=== PATIENT | male | born 1970 | race Caucasian/White ===

== ENCOUNTER 2020-05-12 08:30 | Day surgery (SDC) | payer BC ==
[~2020-05-12] VITALS: Ht 185.4 cm; Wt 106.9 kg
[~2020-05-12 08:30] MED LIST: ALPR.5 PO; BUPR150ER PO; CITA20 PO; FENO145 PO; LISHYD1012 PO; OXYACE5T PO; Pravachol80 MG PO; ZOLP10 PO
--- NOTE | 2020-05-12 08:58 | NUR ---
PT AMBULATED INDPENDENTLY WITH STEADY GAIT FROM [facility] TO [facility]. PT PLACED IN GOWN, IV PLACED AND FLUIDS STARTED. PT VSS. DENIES ADDITIONAL NEEDS AT THIS TIME. BLOOD CONSENT COMPLETED.
--- NOTE | 2020-05-12 09:37 | NUR ---
05/12/20 0937 KAVYA HYLTON History, Chart, Medications and Allergies reviewed before start of procedure. 3-LEAD EKG REVIEWED WITH PHYSICIAN PRIOR TO START OF PROCEDURE. O2 VIA N/C INTACT THROUGHOUT SEDATION/PROCEDURE. MONITOR INTACT WITH CONTINUOUS PULSE OXIMETRY AND INTERMITTENT BP. PATIENT DETERMINED TO BE ASA APPROPRIATE FOR PROPOFOL SEDATION PRIOR TO START OF PROCEDURE BY DR. GILLIS
--- NOTE | 2020-05-12 10:59 | NUR ---
Discharge instructions reviewed with patient. Patient verbalizes understanding. Copy given to patient to take home. Discharged via wheelchair to private car for ride home.
== END 2020-05-12 10:45 | disposition home or self-care (01) ==
LOC: ORSCMMR 08:30 → ORD 09:30 → ORSCMMR 10:45
PROVIDERS: Internal Medicine Gastroenterology
PROC: 0DBL8ZX Excision of Transverse Colon, Via Natural or Artificial Opening Endoscopic, Diagnostic (ICD-10-PCS; principal; 2020-05-12 09:30)
PROC: 0DBM8ZX Excision of Descending Colon, Via Natural or Artificial Opening Endoscopic, Diagnostic (ICD-10-PCS; principal; 2020-05-12 09:30)
PROC: 0DBK8ZX Excision of Ascending Colon, Via Natural or Artificial Opening Endoscopic, Diagnostic (ICD-10-PCS; principal; 2020-05-12 09:30)
DX: Z12.11 Encounter for screening for malignant neoplasm of colon (principal); D12.2 Benign neoplasm of ascending colon; D12.3 Benign neoplasm of transverse colon; D12.4 Benign neoplasm of descending colon; K64.8 Other hemorrhoids; Z86.010 Personal history of colon polyps; I10 Essential (primary) hypertension; Z79.899 Other long term (current) drug therapy
CPT/HCPCS: 88305; J2250; J2704; J7120